=== PATIENT | male | born 1970 | race Caucasian/White ===

== ENCOUNTER 2017-08-19 20:54 | Emergency (ER) | payer BC, SELFPAY ==
[2017-08-19 20:56] VITALS: BP 143/98; PULSE 140; RESP 22; TEMP 37.1; O2SAT 95; BMI 23.6
[2017-08-19 21:35] LABS: Absolute Neutrophil Count 10.6 X10^3/uL (2.0-7.7); Basophil# 0.01 X10^3/uL; Basophil% 0.1 % (0-1); Eosinophil# 0.01 X10^3/uL; Eosinophils% 0.1 % (0-5); Hematocrit 48.6 % (40-54); Hemoglobin 17.5 g/dl (13.0-16.5); Lymphocyte % 11.9 % (19-41); Mean Corpuscular Hgb 31.9 pg (27.0-32.0); Mean Corpuscular Volume 88.7 fL (80-94); Mean Platelet Vol. 8.7 fl (6.2-12.0); Monocyte# 1.26 X10^3/uL; Monocyte% 9.3 % (0-10); Neutrophil # 10.58 X10^3/uL (2.7-7.7); Neutrophil % 78.4 % (47-70); POSITIVE COUNT NO; POSITIVE DIFFERENTIAL NO; POSITIVE MORPHOLOGY NO; Platelet Count 257 K/mm3 (150-450); RBC Distribution Width CV 12.5 % (11.6-14.6); RBC Distribution Width SD 39.8 fl (35.1-43.9); Red Blood Count 5.48 M/mm3 (4.6-6.2); White Blood Count 13.5 K/mm3 (4.4-11.0)
[2017-08-19 21:47] LABS: Anion Gap 8 (5-15); BUN 18 mg/dL (7-18); BUN/Creat Ratio 14.9 RATIO (10-20); Calcium,Total 9.4 mg/dL (8.5-10.1); Chloride 100 mmol/L (98-107); Creatinine, Serum 1.21 mg/dL (0.70-1.30); EST Glomerular Filtration Rate 68 mL/min (>60); Est Glom Filt Rate - Afr Amer 82 mL/min (>60); Glucose 109 mg/dL (74-106); Potassium 3.6 mmol/L (3.5-5.1); Sodium Level 134 mmol/L (136-145)
--- NOTE | 2017-08-19 22:38 | ED.VISSUMM ---
- ER Visit Summary Date of Service: 08/19/17 Chief Complaint: [] Abdominal cramping nausea vomiting History of Present Illness: The patient is a 47 M stated that for 20 years she gets episodes of epigastric abdominal pain that can last about 12 hours. This is been going on for about 24 hours. It is a cramping sensation associated with frequent emesis every 20 minutes. His been doing this for the last 24 hours. He has had chronic loose diarrhea which is not worried about. He has had full workups by GI with no specific cause. His last workup however was 7 years ago. No home treatment for this. He feels like he hydrated. Physical Examination: [] Vital signs reviewed General: Well-nourished well-developed Head: Normocephalic atraumatic Eyes: Pupils equal round and reactive to light extraocular movements intact ENT: TMs clear no hemotympanum no trauma Neck: Nontender full range of motion Cardiovascular: Regular tachycardia with normal rhythm no murmurs normal S1-S2 Respiratory: No distress clear to auscultation bilaterally chest nontender Abdomen: Soft nontender nondistended normal bowel sounds no masses Back: Nontender no CVA tenderness Extremities: Nontender active range of motion ?4 extremities no trauma Skin: Normal color no trauma Neuro alert oriented cranial nerves II through XII intact normal strength sensation reflexes Test Results: [] Emergency Department Course and Treatment: [] Patient given IV fluids, Zofran, Toradol. Lab work obtained. Shows a white count 13.5. Hemoglobin 17.5. This is hemoconcentration. Chemistries normal except sodium 134. Liver function tests normal except total bili 1.2. Lipase 183. On reevaluation patient is resting comfortably symptom-free. He will be given Zofran and rectal Phenergan for home. He will be given a short course of volume as this sounds like gastric and/or intestinal spasms. He will follow-up as an outpatient. Given GI referral. Treatment Plan: [] Disposition: [] Impression: [] Episodic epigastric abdominal pain with nausea and vomiting This note was generated with [employer] dictation software. It may contain incorrect words, spelling, and punctuation that were not noted in review of the chart prior to signing ED Disposition - Plan for ED Patient: Chief Complaint: Abd Pain Referrals: Care Physician,No Primary [Primary Care Provider] -
[2017-08-19 22:56] LABS: AST(SGOT) 19 U/L (15-37); Alanine Aminotransfer ALT/SGPT 33 U/L (16-61); Albumin, Serum 4.6 g/dL (3.2-5.0); Alkaline Phosphatase 70 U/L (45-117); Bilirubin, Direct 0.21 mg/dL (0.00-0.30); Globulin 3.8 g/dL (2.2-4.2); Lipase 183 U/L (73-393); Protein, Total 8.4 g/dL (6.4-8.2)
[2017-08-19] MEDS: 0.9% Normal Saline 1,000 ML 1000 ML IV (22:58)
[2017-08-19] MEDS: Ketorolac 30 MG/ML Syringe IV (22:58)
[2017-08-19] MEDS: Ondansetron 4 MG/2 ML Vial IV (23:00)
--- NOTE | 2017-08-19 23:45 | ED.DEP ---
ED Disposition - Plan for ED Patient: Disposition: Home or Assisted Living Chief Complaint: Abd Pain Instructions: ED Abdominal Pain Unkn Cause Prescriptions: proMETHazine suppository [Phenergan Suppository] 25 mg RECTAL Q6H PRN PRN #6 suppos. PRN Reason: Nausea proMETHazine tablet [Phenergan] 25 mg PO Q6H PRN PRN #10 tab PRN Reason: Nausea Diazepam [Valium] 5 mg PO Q8 PRN #10 tab PRN Reason: Muscle Spasm Referrals: Care Physician,No Primary [Primary Care Provider] - Tomas Bradley [[facility]] - Corey Peraza MD [STAFF PHYSICIAN] -
[2017-08-20 00:20] VITALS: BP 122/93; PULSE 94; RESP 16; O2SAT 97
[2017-08-20 00:24] VITALS: BP 122/93; PULSE 98; RESP 16; O2SAT 97
== END 2017-08-20 00:33 | disposition home or self-care (01) ==
PROVIDERS: Emergency Provider Emergency Medicine
DX: R10.13 Epigastric pain (principal); R11.2 Nausea with vomiting, unspecified; K52.9 Noninfective gastroenteritis and colitis, unspecified
CPT/HCPCS: 80048; 80076; 83690; 85025; 96374; 96375; 99284; J7030; A4216; J2405

== ENCOUNTER → 2017-09-12 08:38 | Outpatient (CLI) | payer BC, SELFPAY ==
--- NOTE | 2017-09-12 09:00 | RAD_ITS ---
STUDY: AIR-CONTRAST ESOPHAGRAM STUDY REASON FOR EXAM: Male, 47 years old. Vomiting. symptoms started at age 24, no one can seem to find anything, pt. having severe spasming distal esoph causing severe pain for 12 hours with vomiting, occurences are increasing, pt very frustrated RADIATION DOSAGE (If Supplied By Facility): CTDIvol = ( ) mGy, DLP = ( ) mGycm FLUOROSCOPY TIME (if supplied): (0:36) minutes/seconds, 15 images. TECHNIQUE: Barium pill swallow with sips of water is performed at the beginning of the study without difficulty. Multiple barium swallows were performed under fluoroscopic monitoring. Multiple views of the esophagus, the upper stomach were performed. COMPARISON: None. FINDINGS: Barium pill swallow with sips of water is performed at the beginning of the study without difficulty. The esophagus appears normal in size and shape it shows unremarkable mucosal pattern. There is no evidence of hiatal hernia or abnormal vascular compression. RAD/Esophagus Only IMPRESSION: Unremarkable study. Electronically Signed: Jeremy Catherine MD at 12:11 EDT Tel , Service support ,
== END ==
LOC: RAD 08:39
PROVIDERS: Visit Provider Internal Medicine Gastroenterology
DX: R13.10 Dysphagia, unspecified (principal); K22.4 Dyskinesia of esophagus
CPT/HCPCS: 74220